=== PATIENT | female | born 1990 | race Caucasian/White ===

== ENCOUNTER → 2017-11-27 | Outpatient (CLI) | payer OTHER ==
[~2017-11-27] MED LIST: BENZ100A PO; HYDACE5 PO; IBUP800 PO; NAPR500 PO; OXYACE5T PO; Sprintec1 EACH PO
== END ==
LOC: LAB SHORT 10:50 → LAB 10:50
DX: Z33.1 Pregnant state, incidental (principal)
CPT/HCPCS: 87081; 87653

== ENCOUNTER 2017-12-01 00:11 | Inpatient (IN) | payer OTHER ==
[~2017-12-01] VITALS: Ht 157.5 cm; Wt 51.4 kg
[~2017-12-01 00:11] MED LIST changes: -Sprintec1 EACH PO
[2017-12-01 00:55] LABS: BASOPHILS ABSOLUTE AUTO 0.03 K/mm3 (0.00-0.23); BASOPHILS PERCENT AUTO 0 % (0-2); EOSINOPHILS ABSOLUTE AUTO 0.06 K/mm3 (0.00-0.68); EOSINOPHILS PERCENT AUTO 0 % (0-6); Hematocrit 32.9 % (33.0-51.0); Hemoglobin 10.7 g/dL (11.5-16.0); IMMATURE GRAN ABSOLUTE AUTO 0.13 K/mm3 (0.00-0.10); IMMATURE GRAN PERCENT AUTO 1 % (0-1); LYMPHOCYTES ABSOLUTE AUTO 2.05 K/mm3 (0.84-5.20); LYMPHOCYTES PERCENT AUTO 14 % (21-46); MONOCYTES PERCENT AUTO 6 % (4-13); Mean Corpuscular HGB 27.2 pg (26.0-34.0); Mean Corpuscular HGB Conc 32.5 g/dL (31.5-36.5); Mean Corpuscular Volume 84 fL (80-100); Mean Platelet Volume 11.9 fL (9.1-12.4); NEUTROPHILS ABSOLUTE AUTO 11.29 K/mm3 (1.96-9.15); NEUTROPHILS PERCENT AUTO 79 % (41-73); Platelet Count 163 K/mm3 (150-400); RDW Coefficient Variation 13.4 % (11.7-14.2); RDW Standard Deviation 41.2 fL (35.1-46.3); Red Blood Cell Count 3.93 M/mm3 (3.80-5.20); White Blood Cell Count 14.36 K/mm3 (4.00-11.30)
[2017-12-02 06:04] LABS: Mean Corpuscular HGB 26.9 pg (26.0-34.0); Mean Corpuscular HGB Conc 32.1 g/dL (31.5-36.5); Mean Corpuscular Volume 84 fL (80-100); RDW Coefficient Variation 13.5 % (11.7-14.2); RDW Standard Deviation 41.1 fL (35.1-46.3); Red Blood Cell Count 3.35 M/mm3 (3.80-5.20); White Blood Cell Count 15.75 K/mm3 (4.00-11.30)
[2017-12-02 06:11] LABS: Mean Platelet Volume 11.9 fL (9.1-12.4); Platelet Count 136 K/mm3 (150-400)
[2017-12-02] MEDS ORDERED: IBUP800 PO (13:35)
[2017-12-02] MEDS ORDERED: Sprintec1 EACH PO (13:36)
== END 2017-12-02 15:35 | disposition home or self-care (01) | DRG 775 ==
LOC: OBS 00:11 → BC 00:11 → OBS 00:29 → BC 00:31
PROVIDERS: Obstetrics & Gynecology
PROC: 10E0XZZ Delivery of Products of Conception, External Approach (ICD-10-PCS; principal; 2017-12-01)
PROC: 0HQ9XZZ Repair Perineum Skin, External Approach (ICD-10-PCS; 2017-12-01)
PROC: 10907ZC Drainage of Amniotic Fluid, Therapeutic from Products of Conception, Via Natural or Artificial Opening (ICD-10-PCS; 2017-12-01)
PROC: 3E0R3BZ Introduction of Anesthetic Agent into Spinal Canal, Percutaneous Approach (ICD-10-PCS; 2017-12-01)
PROC: 10S0XZZ Reposition Products of Conception, External Approach (ICD-10-PCS; 2017-12-01)
DX: O32.2XX0 Maternal care for transverse and oblique lie, not applicable or unspecified (principal); O99.334 Smoking (tobacco) complicating childbirth; F17.200 Nicotine dependence, unspecified, uncomplicated; O70.0 First degree perineal laceration during delivery; Z3A.37 37 weeks gestation of pregnancy; Z37.0 Single live birth; O76 Abnormality in fetal heart rate and rhythm complicating labor and delivery
CPT/HCPCS: 36415; 85025; 85027; 96372; J1885; J2590; J3105; J7120

== ENCOUNTER → 2018-01-09 | Outpatient (CLI) | payer OTHER ==
[~2018-01-09] MED LIST changes: +Sprintec1 EACH PO
== END ==
LOC: LAB SHORT 15:42 → LAB EV 15:42
DX: N12 Tubulo-interstitial nephritis, not specified as acute or chronic (principal)
CPT/HCPCS: 87077; 87086; 87186

== ENCOUNTER → 2018-11-24 | Outpatient (CLI) | payer OTHER ==
[2018-11-24 17:10] LABS: Source, Urine Voided
[2018-11-24 17:18] LABS: Bilirubin, Urine Neg (Neg); Blood, Urine Neg (Neg); Glucose Qualitative, Urine Neg (Neg); Ketones, Urine Neg (Neg); Leukocyte Esterase, Urine Neg (Neg); Nitrite, Urine Neg (Neg); Protein, Urine Neg (Neg); Specific Gravity, Urine 1.015 (1.003-1.022); Urobilinogen, Urine NORM (Normal)
[2018-11-24 17:29] LABS: Appearance, Urine Clear (Clear); Color, Urine Yellow (P-Yellow); U Amphetamine Screen Not Detected; U Barbituate Screen Not Detected; U Benzodiazapine Screen Not Detected; U Buprenorphine Screen Not Detected; U Cannabinoids Screen Not Detected; U Cocaine Screen Not Detected; U Methadone Screen Not Detected; U Methamphetamine Screen Not Detected; U Opiates Screen Not Detected; U Oxycodone Screen Not Detected; U Phencyclidine Screen Not Detected; U Propoxyphene Screen Not Detected
== END | disposition home or self-care (01) ==
LOC: LAB SHORT 17:06 → LAB 17:06
PROVIDERS: Obstetrics & Gynecology
DX: Z34.80 Encounter for supervision of other normal pregnancy, unspecified trimester (principal)
CPT/HCPCS: 81003; 87086

== ENCOUNTER 2021-06-26 18:45 | Emergency (ER) | payer OTHER ==
[~2021-06-26] VITALS: Ht 157.5 cm; Wt 47.6 kg
[2021-06-26 19:15] LABS: Hematocrit 32.3 % (33.0-51.0); Hemoglobin 10.3 g/dL (11.5-16.0); Mean Corpuscular HGB 27.3 pg (26.0-34.0); Mean Corpuscular HGB Conc 31.9 g/dL (31.5-36.5); Mean Corpuscular Volume 86 fL (80-100); Mean Platelet Volume 11.2 fL (9.1-12.4); Platelet Count 269 K/mm3 (150-400); RDW Coefficient Variation 14.8 % (11.7-14.2); RDW Standard Deviation 46.7 fL (35.1-46.3); Red Blood Cell Count 3.77 M/mm3 (3.80-5.20); White Blood Cell Count 18.13 K/mm3 (4.00-11.30)
[2021-06-26 19:35] LABS: Alanine Aminotransfer (ALT/SGP 442 U/L (12-78); Alk Phos 77 U/L (50-136); Anion Gap 6 mmol/L (6-16); Aspartate Aminotrans (AST/SGOT 615 U/L (12-37); Beta HCG, Quantitative, Serum <1 mIU/mL (0-3); Bilirubin, Total 0.2 mg/dL (0.1-1.0); Blood Urea Nitrogen 14 mg/dL (8-24); Bun/Creatinine Ratio 17.4 (12.0-20.0); CO2, Blood 24 mmol/L (21-32); Calcium, Blood 8.1 mg/dL (8.5-10.1); Chloride, Blood 111 mmol/L (98-108); Ethanol (Alcohol), Blood, Med <3 mg/dL; Glomerular Filtration Rate >60 (60-); Glucose, Blood 200 mg/dL (70-99); Potassium, Blood 3.1 mmol/L (3.5-5.5); Sodium, Blood 141 mmol/L (136-145)
[2021-06-26 19:47] LABS: International Normalized Ratio 1.09; Prothrombin Time Results 11.4 Sec (9.7-11.5)
[2021-06-26 20:26] LABS: BAND PERCENT MAN 1 % (0-8); BASOPHILS PERCENT MAN 0 % (0-2); EOSINOPHILS PERCENT MAN 0 % (0-6); LYMPHOCYTES ABSOLUTE MAN 4.53 K/mm3 (0.84-5.20); LYMPHOCYTES PERCENT MAN 25 % (21-46); MONOCYTES ABSOLUTE MAN 0.36 K/mm3 (0.16-1.47); MONOCYTES PERCENT MAN 2 % (4-13); NEUTROPHILS ABSOLUTE MAN 13.23 K/mm3 (1.96-9.15); SEG NEUTROPHILS PERCENT MAN 72 % (41-73); TOTAL CELLS COUNTED 100
== END 2021-06-26 21:56 | disposition short-term general hospital (02) ==
LOC: ER 18:45
PROVIDERS: Emergency Medicine
DX: S72.101A Unspecified trochanteric fracture of right femur, initial encounter for closed fracture (principal); S32.591A Other specified fracture of right pubis, initial encounter for closed fracture; S36.113A Laceration of liver, unspecified degree, initial encounter; S36.039A Unspecified laceration of spleen, initial encounter; S01.111A Laceration without foreign body of right eyelid and periocular area, initial encounter; V49.9XXA Car occupant (driver) (passenger) injured in unspecified traffic accident, initial encounter
CPT/HCPCS: 12013; 36430; 51702; 70450; 71260; 72125; 73552; 74177; 80053; 83690; 84702; 85025; 85610; 86850; 86900; 86901; 86923; 90471; 90714; 96374; 96375; 96376; 99285-25; G0480; J2060; J2405; J3010; J7030; P9016; Q9967

== ENCOUNTER 2021-10-06 12:58 | Day surgery (SDC) | payer OTHER ==
[~2021-10-06] VITALS: Ht 154.9 cm; Wt 40.1 kg
[~2021-10-06 12:58] MED LIST changes: +Cyclobenzaprine5 MG PO; +GABAPENTIN250 MG/51 PO
--- NOTE | 2021-10-06 14:05 | NUR ---
Jaden Paws warming gown applied. Surgical site prepped with 2% Chlorhexidine cloth wipe. History, Chart, Medications and Allergies reviewed before start of procedure.Lungs clear T/O to Auscultation. Patient confirms NPO status and agrees with scheduled surgery. Pre-Op teaching done. Pt verbalizes understanding. Patient States Post-Procedure ride home has been arranged. Patient reports completing Chlorhexadine shower X2 prior to admission to hospital.
--- NOTE | 2021-10-06 15:05 | NUR ---
ARRIVED FROM PACU TO STEP VSS GIVEN COFFEE AND JUICE AT THES TIME.
--- NOTE | 2021-10-06 16:38 | NUR ---
Discharge instructions reviewed with patient. Patient verbalizes understanding. Copy given to patient to take home. Patient States Post-Procedure ride home has been arranged. Discharged via wheelchair to private car for ride home.
--- NOTE | 2021-10-09 16:06 | NUR ---
10/09/21 1606 Alyssa Watt VERIFICATIONS: EDIT CHART.
== END 2021-10-06 23:05 | disposition home or self-care (01) ==
LOC: ORSCMMR 12:58
PROVIDERS: Orthopaedic Surgery
PROC: 0QP Lower Bones, Removal (ICD-10-PCS; principal; 2021-10-06 14:00)
DX: T84.9XXA Unspecified complication of internal orthopedic prosthetic device, implant and graft, initial encounter (principal); Z96.9 Presence of functional implant, unspecified; S32.501S Unspecified fracture of right pubis, sequela; S72.21XS Displaced subtrochanteric fracture of right femur, sequela; F17.210 Nicotine dependence, cigarettes, uncomplicated; Z79.899 Other long term (current) drug therapy
CPT/HCPCS: 72170; A9270; J0690; J1100; J2250; J2405; J2704; J3010; J7120